=== PATIENT | male | born 1940 | race Caucasian/White ===

== ENCOUNTER 2017-01-02 15:46 | Emergency (ER) | payer MEDICARE ==
[~2017-01-02] VITALS: Ht 172.7 cm; Wt 100.0 kg
[~2017-01-02 15:46] MED LIST: AMLO5TAB22 PO; BACT800T5 PO
[2017-01-02 15:50] VITALS: BP 173/78; PULSE 85; RESP 20; TEMP 98.7; O2SAT 99
--- NOTE | 2017-01-02 15:57 | PD ---
HPI Chief Complaint: Complaint Time Seen by Provider: 15:56 Travel History International Travel<30 days: No Contact w/Intl Traveler<30days: No Traveled to known affect area: No History of Present Illness HPI Patient comes in complaining of gross hematuria ongoing for approximately 5 days , worse today. Patient states he had some similar happen several years ago was found to have prostate cancer. Patient had seeding done but denies seeing a urologist anymore. Patient reports he is only taking blood pressure medicine. Denies taking any blood thinners. Denies any trauma. Patient reports some discomfort his left flank. Denies any dysuria, fevers, chest pain, shortness of breath, nausea, vomiting, or diarrhea. Patient states he's been trying to drink more water for this which helps to clear his urine. Patient states he doesn't drink enough water causes it to be more hematuria. PFSH Past Medical History High Cholesterol: Yes Diminished Hearing: No Genitourinary: Yes (LASER TO PROSTATE?) Hypertension: Yes Past Surgical History Other Surgery: Yes (prostate) Social History Alcohol Use: No Tobacco Use: No Substance Use: No Allergies-Medications (Allergen,Severity, Reaction): Coded Allergies: No Known Allergies (Unverified , 05/19/16) Reported Meds & Prescriptions Reported Meds & Active Scripts Active Bactrim DS (Sulfamethoxazole-Trimethoprim) 800-160 Mg Tab 1 Tab PO BID Reported Amlodipine (Amlodipine Besylate) 5 Mg Tab 5 Mg PO DAILY Review of Systems Except as stated in HPI: all other systems reviewed are Neg Physical Exam Narrative GENERAL: Well-developed, overly nourished, in no acute distress, and non-ill appearing. SKIN: Focused skin assessment warm and dry. HEAD: Atraumatic. Normocephalic. EYES: Pupils equal and round. EOMI. No scleral icterus. No injection or drainage. ENT: No nasal bleeding or discharge. Mucous membranes pink and moist. NECK: Trachea midline. Supple. No nuclear rigidity. CARDIOVASCULAR: Regular rate and rhythm. No murmur appreciated. RESPIRATORY: No accessory muscle use. No respiratory distress. Clear to auscultation. Breath sounds equal bilaterally. GASTROINTESTINAL: Abdomen soft, non-tender, nondistended. Hepatic and splenic margins not palpable. Normal bowel sounds 4. No pulsatile mass. No CVS tenderness. MUSCULOSKELETAL: No obvious deformities. No clubbing. No cyanosis. No edema. Full range of motion. NEUROLOGICAL: Awake and alert. No obvious cranial nerve deficits. Motor grossly within normal limits. Normal speech. PSYCHIATRIC: Appropriate mood and affect; insight and judgment normal. Data Data Last Documented VS Vital Signs Date Time Temp Pulse Resp B/P Pulse Ox O2 Delivery O2 Flow Rate FiO2 01/02/17 15:59 99 Room Air 01/02/17 15:50 98.7 85 20 173/78 Orders Basic Metabolic Panel (Bmp) (01/02/17 15:55) Complete Blood Count With Diff (01/02/17 15:55) Prothrombin Time / Inr (Pt) (01/02/17 15:55) Act Partial Throm Time (Ptt) (01/02/17 15:55) Urinalysis - C+S If Indicated (01/02/17 15:55) Ct Abd/Pel W/O Iv Contrast (01/02/17 15:55) Iv Access Insert/Monitor (01/02/17 15:55) Ecg Monitoring (01/02/17 15:55) Oximetry (01/02/17 15:55) Sodium Chloride 0.9% Flush (Ns Flush) (01/02/17 16:00) Urine Culture (01/02/17 14:50) Phenazopyridine (Pyridium) (01/02/17 18:00) Ketorolac Inj (Toradol Inj) (01/02/17 18:15) Labs Laboratory Tests Test 01/02/17 01/02/17 14:50 16:00 Urine Color DARK-RED Urine Turbidity HAZY Urine pH 6.5 Urine Specific [place] 1.004 Urine Protein 100 mg/dL Urine Glucose (UA) NEG mg/dL Urine Ketones NEG mg/dL Urine Occult Blood MOD Urine Nitrite NEG Urine Bilirubin NEG Urine Urobilinogen LESS THAN 2.0 MG/DL Urine Leukocyte Esterase SMALL Urine RBC /hpf Urine WBC 4 /hpf Urine Amorphous Sediment RARE Urine Bacteria MOD /hpf Microscopic Urinalysis Comment CULTURE INDICATED White Blood Count 8.2 TH/MM3 Red Blood Count 4.25 MIL/MM3 Hemoglobin 13.3 GM/DL Hematocrit 39.3 % Mean Corpuscular Volume 92.6 FL Mean Corpuscular Hemoglobin 31.3 PG Mean Corpuscular Hemoglobin 33.9 % Concent Red Cell Distribution Width 13.6 % Platelet Count 344 TH/MM3 Mean Platelet Volume 7.6 FL Neutrophils (%) (Auto) 72.7 % Lymphocytes (%) (Auto) 18.4 % Monocytes (%) (Auto) 6.6 % Eosinophils (%) (Auto) 1.6 % Basophils (%) (Auto) 0.7 % Neutrophils # (Auto) 6.0 TH/MM3 Lymphocytes # (Auto) 1.5 TH/MM3 Monocytes # (Auto) 0.5 TH/MM3 Eosinophils # (Auto) 0.1 TH/MM3 Basophils # (Auto) 0.1 TH/MM3 CBC Comment DIFF FINAL Differential Comment Prothrombin Time 11.7 SEC Prothromb Time International 1.1 RATIO Ratio Activated Partial 28.2 SEC Thromboplast Time Sodium Level 134 MEQ/L Potassium Level 3.6 MEQ/L Chloride Level 99 MEQ/L Carbon Dioxide Level 28.4 MEQ/L Anion Gap 7 MEQ/L Blood Urea Nitrogen 10 MG/DL Creatinine 0.89 MG/DL Estimat Glomerular Filtration 83 ML/MIN Rate Random Glucose 161 MG/DL Calcium Level 8.9 MG/DL [facility] Medical Decision Making Medical Screen Exam Complete: Yes Emergency Medical Condition: Yes Differential Diagnosis UTI, renal calculi, cancer, other Narrative Course Patient in no obvious distress upon re-evaluation. All pertinent laboratory/ Radiology result(s) discussed with patient by Dr. Villatoro. Any questions/concerns in reference to patient diagnosis/condition discussed and clarified prior to patient's discharge. Reinforced sheer importance of close follow up with patient 's primary physician or primary care clinic and especially urology. Instructed patient to return to ED immediately, if symptoms return/worsen. Pt showed understanding of above instructions. Further instructions and recommendations were detailed in discharge paperwork. Pt ambulated without difficulty out of ED at discharge. Diagnosis Primary Impression: Bladder mass Additional Impression: UTI (urinary tract infection) Qualified Code: N39.0 - Urinary tract infection with hematuria, site unspecified Referrals: Urologist Patient Instructions: General Instructions Additional Instructions: Follow-up with your primary care physician and urologist in 3-5 days for reevaluation and for further evaluation of mass noted and your bladder today. Take all medication as prescribed. Return to the emergency department if symptoms get worse. Med/Other Pt SpecificInfo: Prescription(s) given Scripts Sulfamethoxazole-Trimethoprim (Bactrim DS)800-160 Mg Tab1 Tab PO BID #14 TAB Ref 0 Prov:Dory Villatoro MD 01/02/17 Disposition: 01 DISCHARGE HOME Condition: Stable Filemon Bright Jan 02, 2017 15:57
[2017-01-02 15:59] VITALS: O2SAT 99
[2017-01-02] MEDS ORDERED: AMLO5TAB2 PO (15:59)
[2017-01-02] MEDS ORDERED: SODIUM CHLORIDE 0.9% FLUSH 10 ML FLUSH IV FLUSH PRN (16:00)
[2017-01-02 16:19] LABS: BASOPHIL # 0.1 TH/MM3 (0-0.2); BASOPHIL % 0.7 % (0.0-2.0); EOSINOPHIL # 0.1 TH/MM3 (0-0.4); EOSINOPHIL % 1.6 % (0.0-4.0); HEMATOCRIT 39.3 % (39.0-51.0); HEMO FLAGS DIFF FINAL; LYMPH % 18.4 % (9.0-44.0); LYMPHOCYTE # 1.5 TH/MM3 (1.0-4.8); MEAN CELL VOLUME 92.6 FL (80.0-100.0); MEAN CORPUSCULAR HEMOGLOBIN 31.3 PG (27.0-34.0); MEAN CORPUSCULAR HGB CONC 33.9 % (32.0-36.0); MONO % 6.6 % (0.0-8.0); NEUT % 72.7 % (16.0-70.0); PLATELET COUNT 344 TH/MM3 (150-450); RED BLOOD COUNT 4.25 MIL/MM3 (4.50-5.90); RED CELL DISTRIBUTION WIDTH 13.6 % (11.6-17.2); WHITE BLOOD COUNT 8.2 TH/MM3 (4.0-11.0)
[2017-01-02 16:29] LABS: APTT (PATIENT) 28.2 SEC (24.3-30.1); INTERNATIONAL NORMALIZED RATIO 1.1 RATIO; PROTHROMBIN TIME - PATIENT 11.7 SEC (9.8-11.6)
--- NOTE | 2017-01-02 16:40 | RADRPT ---
EXAM DATE/TIME: 01/02/2017 16:20 [place] COMPARISON: CT ABDOMEN & PELVIS W/O CONTRAST, May 12, 2016, 12:24. INDICATIONS : Hematuria. ORAL CONTRAST: No oral contrast ingested. RADIATION DOSE: 7.77 CTDIvol (mGy) MEDICAL HISTORY : Hypertension. Carcinoma, prostate. SURGICAL HISTORY : Prostatectomy. ENCOUNTER: Initial ACUITY: 1 day PAIN SCALE: 0/10 LOCATION: abdomen TECHNIQUE: Volumetric scanning of the abdomen and pelvis was performed. Using automated exposure control and adjustment of the mA and/or kV according to patient size, radiation dose was kept as low as reasonably achievable to obtain optimal diagnostic quality images. FINDINGS: LOWER LUNGS: The visualized lower lungs are clear. LIVER: Homogeneous density without lesion. There is no dilation of the biliary tree. No calcifi ed gallstones. SPLEEN: Normal size without lesion. PANCREAS: Within normal limits. KIDNEYS: Normal in size and shape. There is no mass, stone, or hydronephrosis. ADRENAL GLANDS: Within normal limits. VASCULAR: There is no aortic aneurysm. BOWEL/MESENTERY: Multiple diverticula are again noted throughout the sigmoid colon. The stomach, small bowel, and colon demonstrate no acute abnormality. There is no free intraperitoneal air or flu id. ABDOMINAL WALL: Within normal limits. RETROPERITONEUM: There is no lymphadenopathy. BLADDER: Intraluminal soft tissue mass is identified in the right supralateral aspect of the urin isabell bladder. The mass measures 4.3 cm in greatest dimension. There is no subcutaneous renal obstructi on. REPRODUCTIVE: Numerous radioactive seeds are seen in the prostate gland. INGUINAL: There is no lymphadenopathy or hernia. MUSCULOSKELETAL: Within normal limits for patient age. CONCLUSION: 4.3 cm mass within the urinary bladder. No evidence of obstructive uropathy. Colonic diverticulosis. Radioactive seeds within the prostate gland. Joe Bernal MD on January 02, 2017 at 16:34 Board Certified Radiologist. This report was verified electronically.
[2017-01-02 16:45] LABS: BICARBONATE 28.4 MEQ/L (21.0-32.0); POTASSIUM 3.6 MEQ/L (3.5-5.1)
[2017-01-02 17:17] LABS: BACTERIA, URINE MOD /hpf; BLOOD, URINE MOD (NEG); COMMENT (UR) CULTURE INDICATED; CULTURE IF INDICATED CULTURE INDICATED; GLUCOSE,URINE NEG (NEG); KETONE, URINE NEG (NEG); NITRITE,URINE NEG (NEG); PH, URINE 6.5 (5.0-8.5)
[2017-01-02 17:18] LABS: URINE COLOR DARK-RED (YELLW/STRAW)
[2017-01-02] MEDS ORDERED: BACT800T5 PO (17:48)
[2017-01-02] MEDS ORDERED: PHENAZOPYRIDINE HCL 200 MG TAB PO ONE (18:00)
[2017-01-02] MEDS ORDERED: KETOROLAC TROMETHAMINE 30 MG/ML (IVP) VIAL IV PUSH ONE (18:15)
--- NOTE | 2017-01-02 18:46 | PD ---
Physical Exam Narrative GENERAL: Well-nourished, well-developed patient. SKIN: Warm and dry. HEAD: Normocephalic EYES: No injection or drainage. ENT: No nasal drainage noted. NECK: Supple, trachea midline. CARDIOVASCULAR: Regular rate and rhythm RESPIRATORY: no increased effort. No accessory muscle use. NEUROLOGICAL: Awake and alert. Moves all extremities. Normal speech. Data Data Last Documented VS Vital Signs Date Time Temp Pulse Resp B/P Pulse Ox O2 Delivery O2 Flow Rate FiO2 01/02/17 15:59 99 Room Air 01/02/17 15:50 98.7 85 20 173/78 Orders Basic Metabolic Panel (Bmp) (01/02/17 15:55) Complete Blood Count With Diff (01/02/17 15:55) Prothrombin Time / Inr (Pt) (01/02/17 15:55) Act Partial Throm Time (Ptt) (01/02/17 15:55) Urinalysis - C+S If Indicated (01/02/17 15:55) Ct Abd/Pel W/O Iv Contrast (01/02/17 15:55) Iv Access Insert/Monitor (01/02/17 15:55) Ecg Monitoring (01/02/17 15:55) Oximetry (01/02/17 15:55) Sodium Chloride 0.9% Flush (Ns Flush) (01/02/17 16:00) Urine Culture (01/02/17 14:50) Phenazopyridine (Pyridium) (01/02/17 18:00) Ketorolac Inj (Toradol Inj) (01/02/17 18:15) Labs Laboratory Tests Test 01/02/17 01/02/17 14:50 16:00 Urine Color DARK-RED Urine Turbidity HAZY Urine pH 6.5 Urine Specific [place] 1.004 Urine Protein 100 mg/dL Urine Glucose (UA) NEG mg/dL Urine Ketones NEG mg/dL Urine Occult Blood MOD Urine Nitrite NEG Urine Bilirubin NEG Urine Urobilinogen LESS THAN 2.0 MG/DL Urine Leukocyte Esterase SMALL Urine RBC /hpf Urine WBC 4 /hpf Urine Amorphous Sediment RARE Urine Bacteria MOD /hpf Microscopic Urinalysis Comment CULTURE INDICATED White Blood Count 8.2 TH/MM3 Red Blood Count 4.25 MIL/MM3 Hemoglobin 13.3 GM/DL Hematocrit 39.3 % Mean Corpuscular Volume 92.6 FL Mean Corpuscular Hemoglobin 31.3 PG Mean Corpuscular Hemoglobin 33.9 % Concent Red Cell Distribution Width 13.6 % Platelet Count 344 TH/MM3 Mean Platelet Volume 7.6 FL Neutrophils (%) (Auto) 72.7 % Lymphocytes (%) (Auto) 18.4 % Monocytes (%) (Auto) 6.6 % Eosinophils (%) (Auto) 1.6 % Basophils (%) (Auto) 0.7 % Neutrophils # (Auto) 6.0 TH/MM3 Lymphocytes # (Auto) 1.5 TH/MM3 Monocytes # (Auto) 0.5 TH/MM3 Eosinophils # (Auto) 0.1 TH/MM3 Basophils # (Auto) 0.1 TH/MM3 CBC Comment DIFF FINAL Differential Comment Prothrombin Time 11.7 SEC Prothromb Time International 1.1 RATIO Ratio Activated Partial 28.2 SEC Thromboplast Time Sodium Level 134 MEQ/L Potassium Level 3.6 MEQ/L Chloride Level 99 MEQ/L Carbon Dioxide Level 28.4 MEQ/L Anion Gap 7 MEQ/L Blood Urea Nitrogen 10 MG/DL Creatinine 0.89 MG/DL Estimat Glomerular Filtration 83 ML/MIN Rate Random Glucose 161 MG/DL Calcium Level 8.9 MG/DL [facility] Supervised Visit with LEN: Yes Interpretation(s) CBC & BMP Diagram 01/02/17 16:00 Last 24 hours Impressions Abdomen/Pelvis CT 01/02/17 1555 Signed Impressions: Service Date/Time: Thursday, January 02, 2017 16:20 - CONCLUSION: 4.3 cm mass within the urinary bladder. No evidence of obstructive uropathy. Colonic diverticulosis. Radioactive seeds within the prostate gland. Joe Bernal MD Narrative Course I, Dr. burt, have reviewed the advance practice practitioner's documentation and am in agreement, met with the patient face to face, made the diagnosis, and the medical decision making was done by me. *My assessment and Findings: 76-year-old male presents with hematuria and lower abdominal pain. CT shows bladder mass, urinalysis with UTI. Patient able to urinate on his own. Patient with normal renal function. Patient agrees to outpatient follow-up with his urologist and updated about results Diagnosis Primary Impression: UTI (urinary tract infection) Qualified Code: N39.0 - Urinary tract infection with hematuria, site unspecified Additional Impressions: Bladder mass Hematuria Referrals: Urologist Patient Instructions: General Instructions Departure Forms: Tests/Procedures Additional Instruction: Follow-up with your primary care physician and urologist in 3-5 days for reevaluation and for further evaluation of mass noted and your bladder today. Take all medication as prescribed. Return to the emergency department if symptoms get worse. Med/Other Pt SpecificInfo: Prescription(s) given Scripts Sulfamethoxazole-Trimethoprim (Bactrim DS)800-160 Mg Tab1 Tab PO BID #14 TAB Ref 0 Prov:Dory Burt MD 01/02/17 Disposition: 01 DISCHARGE HOME Condition: Stable Dory Burt MD Jan 02, 2017 18:46
== END 2017-01-02 18:08 | disposition home or self-care (01) ==
LOC: NEPC 15:46
DX: N39.0 Urinary tract infection, site not specified (principal); R31.0 Gross hematuria; N32.9 Bladder disorder, unspecified; E78.00 Pure hypercholesterolemia, unspecified; I10 Essential (primary) hypertension
CPT/HCPCS: 74176; 80048; 81001; 85025; 85610; 85730; 87086